=== PATIENT | female | born 1980 ===

== ENCOUNTER 2024-11-01 05:19 | Day surgery (SDC) | payer OTHER ==
[2024-10-27 14:01] VITALS: BP 126/82
[~2024-11-01] VITALS: Ht 160 cm; Wt 73.5 kg
[~2024-11-01 05:19] MED LIST: COZAAR100 MG PO; URSO FORTE500 MG
[2024-11-01] MEDS ORDERED: IOVERSOL 320 MG/ML - 50 ML VIAL IV ONE (12:45)
== END 2024-11-01 11:40 | disposition home or self-care (01) ==
LOC: AMB-ERCP 05:19
PROVIDERS: ATTEND Internal Medicine Gastroenterology
DX: K80.50 Calculus of bile duct without cholangitis or cholecystitis without obstruction (principal); T85.590A Other mechanical complication of bile duct prosthesis, initial encounter
CPT/HCPCS: 43264; 43276; C1748

== ENCOUNTER 2025-04-18 11:00 | Day surgery (SDC) | payer OTHER ==
[2025-04-17 14:34] VITALS: BP 140/81
[~2025-04-18] VITALS: Ht 160 cm; Wt 77.1 kg
== END 2025-04-18 16:20 | disposition home or self-care (01) ==
LOC: AMB-ERCP 11:00
PROVIDERS: ATTEND Internal Medicine Gastroenterology
DX: K80.50 Calculus of bile duct without cholangitis or cholecystitis without obstruction (principal); T85.590A Other mechanical complication of bile duct prosthesis, initial encounter
CPT/HCPCS: 43264; 43275; C1748